=== PATIENT | male | born 1945 | race Caucasian/White ===

== ENCOUNTER 2020-11-06 13:19 | Emergency (ER) | payer SELFPAY ==
[~2020-11-06 13:19] MED LIST: EPINEPHRINE SYRINGE 0.1 MG/ML, 10ML ONE; SODIUM BICARB 8.4%, 50ML SYRINGE ONE
--- NOTE | 2020-11-06 13:29 | NUR ---
PT ARRIVED BY AMBULANCE FROM HOME, PER EMS CPR FOR 30 MIN AND ONGOING COMPRESSIONS VIA JO ANN DEVICE, PT INTUATED BY EMS WITH 7.5 ET TUBE, LEFT TIBIAL IO IN PLACE. RECEIVED 3 ROUND OF EPI ENGINE DESIGNER. DR. CASTILLO AT BEDSIDE DURING CODE, PT RECEIVED 1 ROUND OF EPI AND 1 AMP OF BICARB, PT CONTINOUS TO BE ASYSTOLE. CPR STOPPED AT [address] CASTILLO, NO PULSE FELT. FAMILY ON THEIR WAY PER REPORT.
--- NOTE | 2020-11-06 13:48 | NUR ---
CABINET FINISHER WAS CALLED TO COME TALK TO THE FAMILY.
--- NOTE | 2020-11-06 13:59 | NUR ---
DR. CASTILLO AT BEDSIDE WITH FAMILY.
--- NOTE | 2020-11-06 14:13 | NUR ---
CALL TO [employer], REF ID [phone], PER [employer] THEY WILL RETURN CALL.
--- NOTE | 2020-11-06 14:37 | NUR ---
[facility] PER GRADUATE ASSISTANT ATHLETIC TRAINER, SHE WILL COME DOWN TO ER NOW.
--- NOTE | 2020-11-06 15:01 | NUR ---
[facility] INJURY ADJUSTER, TORRIE ARRIVED. .
--- NOTE | 2020-11-06 15:31 | NUR ---
EARLY CHILDHOOD ASSOCIATE TEACHER TORRIE GATHERED PT'S BELONGINGS AND TOOK PICTURES OF TORRIE RAZA TO RELEASE PERSONAL VALUABLES TO PT'S FAMILY.
--- NOTE | 2020-11-06 15:52 | NUR ---
CALL FROM [employer] TO OBTAIN NEXT OF KIN PHONE NUMBER, NUMBER FOR [facility] PROVIDED.
--- NOTE | 2020-11-06 15:55 | NUR ---
TIME PROVIDED FOR FAMILY TO STAY AT BEDSIDE.
--- NOTE | 2020-11-06 17:01 | NUR ---
CALL TO TAX ADVISORANNE-MARIE BROWNLEE TO INFORM, PT HAS BEEN TRANSPORTED DOWN TO THE [facility] [place].
== END 2020-11-06 17:19 | disposition expired ==
LOC: EDBD 13:19 → ED 17:10
DX: I46.9 Cardiac arrest, cause unspecified (principal)
CPT/HCPCS: 92950; 99285